=== PATIENT | female | born 1955 | race Hispanic/Latino ===

== ENCOUNTER → 2018-08-31 | Outpatient (CLI) | payer OTHER ==
[~2018-08-31] VITALS: Ht 157.5 cm; Wt 110.0 kg
[~2018-08-31] MED LIST: ATOR40TA71 PO; CEFAZOLIN SODIUM 1 GM VIAL IVP SCH; INSU100V12 SQ; LEFL10TA15 PO; OLME1TAB42 PO; PANT40TA25 PO; REPA1TAB5 PO; [UNRECOGNIZED DRUG - CODE] PO
[2018-08-31 10:45] LABS: BASOPHILS % (AUTO) 0.6 % (0.0-5.0); EOSINOPHILS % (AUTO) 0.5 % (0.0-8.0); HEMATOCRIT 36.6 % (36-48); LYMPHOCYTES % (AUTO) 7.9 % (21.0-51.0); MEAN CORPUSCULAR HEMOGLOBIN 29.4 pg (27.0-33.0); MEAN CORPUSCULAR HGB CONC 32.4 g/dL (32.0-36.0); MEAN CORPUSCULAR VOLUME 90.6 fL (79-99); MONOCYTES % (AUTO) 5.2 % (3.0-13.0); NEUTROPHILS % (AUTO) 85.8 % (40.0-77.0); PLATELET COUNT (AUTO) 186 K/uL (130-400); RED BLOOD CELL COUNT(AUTO) 4.04 MIL/uL (4.00-5.50); RED CELL DISTRIBUTION WIDTH 14.2 % (11.0-15.5); WHITE BLOOD COUNT (AUTO) 7.2 K/uL (4.8-10.8)
[2018-08-31 10:57] LABS: POTASSIUM 4.6 mmol/L (3.5-5.1)
[2018-08-31 11:06] VITALS: BP 148/68
[2018-08-31 11:43] LABS: CREATININE 1.2 mg/dL (0.5-1.5)
== END | disposition home or self-care (01) ==
LOC: DAH 10:00 → EDSTATUS 10:30
PROVIDERS: ATTEND Neurological Surgery
DX: L45 Papulosquamous disorders in diseases classified elsewhere (principal); M54.5 Low back pain; M79.605 Pain in left leg; M79.604 Pain in right leg; M48.061 Spinal stenosis, lumbar region without neurogenic claudication; Z90.49 Acquired absence of other specified parts of digestive tract
CPT/HCPCS: 36415; 80048; 85025

== ENCOUNTER → 2018-09-20 | Outpatient (CLI) | payer OTHER ==
[~2018-09-20] MED LIST changes: -CEFAZOLIN SODIUM 1 GM VIAL IVP SCH
== END | disposition home or self-care (01) ==
LOC: RAH 14:45
PROVIDERS: ATTEND Neurological Surgery
DX: M47.26 Other spondylosis with radiculopathy, lumbar region (principal); M48.061 Spinal stenosis, lumbar region without neurogenic claudication; M51.16 Intervertebral disc disorders with radiculopathy, lumbar region
CPT/HCPCS: 72148

== ENCOUNTER 2018-11-13 12:45 | Inpatient (IN) | payer OTHER ==
[~2018-11-13] VITALS: Ht 157.5 cm; Wt 108.4 kg
[2018-11-13 14:00] VITALS: BP 127/56
[2018-11-13 14:22] LABS: BASOPHILS % (AUTO) 0.7 % (0.0-5.0); EOSINOPHILS % (AUTO) 0.7 % (0.0-8.0); HEMATOCRIT 35.8 % (36-48); LYMPHOCYTES % (AUTO) 11.8 % (21.0-51.0); MEAN CORPUSCULAR HEMOGLOBIN 29.2 pg (27.0-33.0); MEAN CORPUSCULAR VOLUME 91.4 fL (79-99); MONOCYTES % (AUTO) 7.7 % (3.0-13.0); NEUTROPHILS % (AUTO) 79.1 % (40.0-77.0); PLATELET COUNT (AUTO) 175 K/uL (130-400); RED BLOOD CELL COUNT(AUTO) 3.92 MIL/uL (4.00-5.50); RED CELL DISTRIBUTION WIDTH 15.4 % (11.0-15.5)
[2018-11-13 14:37] LABS: CREATININE 1.3 mg/dL (0.5-1.5); POTASSIUM 5.1 mmol/L (3.5-5.1)
[2018-11-16] VITALS (28 sets, daily range): BP systolic 129–178; BP diastolic 60–98
[2018-11-16] MEDS ORDERED: CEFAZOLIN 3GM /D5W 100ML 100 ML IV SCH (06:00)
[2018-11-16] MEDS ORDERED: SODIUM CHLORIDE 0.9% 1000ML 1,000 ML IV ONE (06:14)
[2018-11-16] MEDS ORDERED: BUPIVACAINE/EPI/PF 0.25% 50 ML VIAL ONE (06:17)
[2018-11-16] MEDS ORDERED: DURAMORPH PF1 MG/ML 10ML AMP IV ONE (06:17)
[2018-11-16] MEDS ORDERED: THROMBIN-JMI 20000 UNIT KIT TP ONE (06:18)
[2018-11-16] MEDS ORDERED: BACITRACIN 50,000 UNIT VIAL ONE (06:18)
[2018-11-16] MEDS: CEFAZOLIN SODIUM 1 GM VIAL ONE ×2 (06:41→07:50)
[2018-11-16] MEDS ORDERED: LIDOCAINE PF 2% 5ML ABBOJECT ONE (06:57)
[2018-11-16] MEDS ORDERED: SUCCINYLCHOLINE 200MG/10ML SYR ONE (06:57)
[2018-11-16] MEDS ORDERED: MIDAZOLAM HCL 1 MG/ML 2ML VIAL ONE ×2 (06:58→07:29)
[2018-11-16] MEDS ORDERED: GLYCOPYRROLATE 1 MG/5 ML SYRINGE ONE (06:58)
[2018-11-16] MEDS ORDERED: NEOSTIGMINE 5MG/5ML SYR IV ONE (06:58)
[2018-11-16] MEDS ORDERED: DEXAMETHASONE SOD PHOSPHATE 10MG/ML 1ML VIAL ONE (06:58)
[2018-11-16] MEDS ORDERED: PROPOFOL 10 MG/ML 20ML VIAL IV ONE (06:58)
[2018-11-16] MEDS ORDERED: ROCURONIUM 10MG/1ML SYR 10 MG/ML ML ONE (06:59)
[2018-11-16] MEDS ORDERED: FENTANYL CITRATE PF 50 MCG/1 ML 2ML VIAL ONE ×2 (06:59→11:45)
[2018-11-16] MEDS ORDERED: ONDANSETRON HCL 4 MG/2 ML VIAL ONE ×4 (06:59→13:38)
[2018-11-16] MEDS ORDERED: EPHEDRINE SULFATE 50 MG/ML AMPULE ONE (07:34)
[2018-11-16] MEDS ORDERED: PHENYLEPHRINE HCL 10 MG/ML 1ML VIAL IV ONE (08:20)
[2018-11-16] MEDS ORDERED: GENTAMICIN 80 MG/NS 100 ML PB 100 ML IV ONE (11:29)
[2018-11-16] MEDS ORDERED: CEFAZOLIN SODIUM 1 GM VIAL ONE (11:30)
[2018-11-16] MEDS ORDERED: FUROSEMIDE 10 MG/ML 4ML VIAL ONE (11:45)
[2018-11-16] MEDS ORDERED: METOCLOPRAMIDE 10 MG/2 ML VIAL ONE ×2 (11:45→13:27)
[2018-11-16] MEDS: LACTATED RINGERS 1000ML 1,000 ML IV SCH (12:19)
[2018-11-16] MEDS ORDERED: HYDROCODONE/ACETAMINOPHEN 5/325 MG TAB PO PRN (12:30)
[2018-11-16] MEDS ORDERED: SODIUM CHLORIDE 0.9% 10 ML VIAL IVP PRN (12:30)
[2018-11-16] MEDS ORDERED: MORPHINE SULFATE 2 MG/ML 1ML SYG IVP PRN (12:30)
[2018-11-16] MEDS: DEXAMETHASONE SOD PHOSPHATE 4 MG/ML 1ML VIAL IVP SCH ×2 (12:30→18:24)
[2018-11-16] MEDS: CEFAZOLIN 3GM /D5W 100ML 100 ML IV SCH ×2 (12:30→20:30)
[2018-11-16] MEDS ORDERED: PROMETHAZINE HCL 25 MG/ML 1ML AMPULE IM PRN (12:30)
[2018-11-16] MEDS: REPAGLINIDE 1 MG TAB PO SCH (17:00)
[2018-11-16] MEDS: INSULIN GLARGINE 100 UNITS/ML 10 ML VIAL SQ SCH (18:15)
[2018-11-16] MEDS ORDERED: GLUCAGON 1MG KIT 1 MG ML IM PRN (18:30)
[2018-11-16] MEDS ORDERED: DEXTROSE 50%-WATER 50 ML DISP.SYRIN IV PRN (18:30)
--- NOTE | 2018-11-16 19:30 | NUR ---
ACTIVITY AMBULATED IN THE HALLWAY WITH ASSISTANCE OF WAYS OPERATOR, STEADY GAIT, TOLERATED WELL, BACK TO ROOM, F/C TO GRAVITY DRAINAGE WITH CLEAR YELLOW URINE, TEACH PATIENT PLAN OF CARE AND EXPECTED OUTCOME, PATIENT VERBALIZES UNDERSTANDING VIA TEACH BACK
--- NOTE | 2018-11-16 20:30 | NUR ---
ACTIVITY AMBULATED IN THE HALLWAY, STEADY GAIT, NO SOB, NO C/O PAIN AT THIS TIME, TOLERATED WELL , BACK TO BED, IVF INFUSING WELL, ENCOURAGE PO FLUIDS TOLERATED
[2018-11-16] MEDS: INSULIN HUMULIN R 100 UNIT/ML 3ML SQ SCH (20:52)
[2018-11-16] MEDS ORDERED: ATORVASTATIN CALCIUM 40 MG TABLET PO SCH (21:00)
--- NOTE | 2018-11-16 21:15 | NUR ---
ACTIVITY AMBULATED IN THE HALLWAY AROUND NURSES STATION , TOLERATED WELL, BACK TO BED, BLE SCDS IN PLACE, CALL BERNABE AT REACH
[2018-11-17] MEDS: DEXAMETHASONE SOD PHOSPHATE 4 MG/ML 1ML VIAL IVP SCH ×3 (00:04→12:30)
[2018-11-17] MEDS: CEFAZOLIN 3GM /D5W 100ML 100 ML IV SCH ×2 (00:06→12:30)
[2018-11-17] MEDS: LACTATED RINGERS 1000ML 1,000 ML IV SCH (01:19)
[2018-11-17 04:00] VITALS: BP 109/50
--- NOTE | 2018-11-17 06:00 | NUR ---
F/C F/C DISCONTINUED, DTV, INSTRUCT PATIENT TO CALL NURSE WHEN URGE TO VOID,PATIENT VERBALIZES UNDERSTANDING VIA TEACH BACK, CALL BERNABE AT REACH
[2018-11-17] MEDS: INSULIN HUMULIN R 100 UNIT/ML 3ML SQ SCH ×2 (06:10→11:25)
[2018-11-17] MEDS ORDERED: PANTOPRAZOLE SODIUM 40 MG TABLET.DR PO SCH (07:30)
[2018-11-17 08:00] VITALS: BP 153/57
[2018-11-17] MEDS: INSULIN GLARGINE 100 UNITS/ML 10 ML VIAL SQ SCH (08:56)
[2018-11-17] MEDS ORDERED: OLMESARTAN HCTZ PO SCH (09:00)
[2018-11-17] MEDS ORDERED: POTASSIUM CITRATE PO SCH (09:00)
[2018-11-17] MEDS ORDERED: LEFLUNOMIDE 10 MG PO SCH (09:00)
[2018-11-17] MEDS: REPAGLINIDE 1 MG TAB PO SCH ×2 (09:01→11:23)
--- NOTE | 2018-11-17 09:45 | NUR ---
DRESSING CHANGE/BLISTERS IV REMOVED, CATH TIP INTACT. DRESSING CHANGED PER DR. ZUÑIGA. MARSHA REMOVED, CATH TIP INTACT. CRISTINE IN PLACE, INCISION IS DRY. NOTED CLUSTERS OF RED FLUID FILLED BLISTERS TO LOWER RIGHT LATERAL INCISION. PICTURE TAKEN AND DR. ZUÑIGA NOTIFIED. PER DR. ZUÑIGA, DO NOT DISCHARGE PATIENT, WILL SEE PATIENT AGAIN. PATIENT MADE AWARE. WILL MONITOR PT CLOSELY, FAMILY AT BEDSIDE
[2018-11-17 12:07] VITALS: BP 107/47
--- NOTE | 2018-11-17 12:36 | NUR ---
IV REMOVED IV REMOVED PER DR. ZUÑIGA ORDER PENDING TO BE DISCHARGED. ANCEF COMPLETED AND DEXAMETHASONE NOT GIVEN.
--- NOTE | 2018-11-17 14:00 | NUR ---
DISCHARGE DISCHARGE TEACHING DONE WITH PATIENT AND FAMILY USING TEACHBACK METHOD, VERBALIZED UNDERSTANDING. NO NOTED SOB OR DISTRESS. PER DR. ZUÑIGA, OK TO DC HOME. INCISION DRESSING CHANGED AGAIN PER MD REQUEST. INCISION IS DRY AND INTACT, CONTINUES WITH CLUSTER OF RED FLUID FILLED BLISTERS TO LOWER RIGHT LATERAL SIDE OF INCISION, MD AWARE. NEW MEDICATION ADMINISTRATION TEACHING DONE WITH PATIENT USING TEACHBACK METHOD, VERBALIZED UNDERSTANDING. PT AWARE OF NEED TO CALL OFFICE TO SCHEDULED SOONER APPOINTMENT. PENDING TO BE TRANSFERRED OUT VIA PRIVATE VEHICLE.
== END 2018-11-17 14:19 | disposition home or self-care (01) | DRG 460 ==
LOC: EDSTATUS 12:45 → DAHIP 11-16 05:38 → 4AH 11-16 13:15
PROVIDERS: ADMIT Neurological Surgery; ATTEND Neurological Surgery
PROC: 0SG0071 Fusion of Lumbar Vertebral Joint with Autologous Tissue Substitute, Posterior Approach, Posterior Column, Open Approach (ICD-10-PCS; principal; 2018-11-16 07:27)
PROC: 0SB20ZZ Excision of Lumbar Vertebral Disc, Open Approach (ICD-10-PCS; 2018-11-16 07:27)
PROC: 4A11X4G Monitoring of Peripheral Nervous Electrical Activity, Intraoperative, External Approach (ICD-10-PCS; 2018-11-16 07:27)
DX: M48.061 Spinal stenosis, lumbar region without neurogenic claudication (principal); Z68.41 Body mass index [BMI] 40.0-44.9, adult; M51.26 Other intervertebral disc displacement, lumbar region; M19.90 Unspecified osteoarthritis, unspecified site; E11.22 Type 2 diabetes mellitus with diabetic chronic kidney disease; E66.01 Morbid (severe) obesity due to excess calories; M06.9 Rheumatoid arthritis, unspecified; K21.9 Gastro-esophageal reflux disease without esophagitis
CPT/HCPCS: 36415; 72020; 80048; 82947; 82948; 85025; A4218; A4344; G0378; J0330; J0690; J1100; J1580; J1815; J1940; J2001; J2250; J2274; J2370; J2405; J2550; J2704; J2710; J2765; J3010; J3490; J7030; J7120

== ENCOUNTER → 2018-12-11 | Outpatient (CLI) | payer OTHER | END | disposition home or self-care (01) | LOC: OIH 07:42 | PROVIDERS: ATTEND Neurological Surgery | DX: M43.26 Fusion of spine, lumbar region (principal); Z90.49 Acquired absence of other specified parts of digestive tract | CPT/HCPCS: 72100 ==